=== PATIENT | female | born 1940 | race Caucasian/White ===

== ENCOUNTER → 2017-02-26 | Outpatient (CLI) | payer MEDICARE, OTHER | LOC: SLEEP-COR 11:01 | DX: G47.33 Obstructive sleep apnea (adult) (pediatric) (principal) | CPT/HCPCS: 95810 ==

== ENCOUNTER → 2021-08-24 | Outpatient (CLI) | payer MEDICARE, OTHER ==
[2021-08-24 14:10] LABS: BUN/CREATININE RATIO 23 (0-10)
== END ==
LOC: LAB 12:22
PROVIDERS: Family Medicine
DX: M25.572 Pain in left ankle and joints of left foot (principal); E03.9 Hypothyroidism, unspecified; E87.0 Hyperosmolality and hypernatremia
CPT/HCPCS: 36415; 73610; 80048; 84439; 84443

== ENCOUNTER → 2021-10-04 | Outpatient (CLI) | payer MEDICARE, OTHER | LOC: KOH-I 09:17 | DX: M25.572 Pain in left ankle and joints of left foot (principal); M19.072 Primary osteoarthritis, left ankle and foot; M19.071 Primary osteoarthritis, right ankle and foot | CPT/HCPCS: 73610; 73630 ==

== ENCOUNTER → 2021-12-17 | Outpatient (CLI) | payer MEDICARE, OTHER | LOC: EXRD 13:02 | DX: M25.561 Pain in right knee (principal); M17.11 Unilateral primary osteoarthritis, right knee | CPT/HCPCS: 73564 ==

== ENCOUNTER → 2022-04-17 | Outpatient (CLI) | payer MEDICARE, OTHER ==
[~2022-04-17] MED LIST: CRESTOR10 MG PO; LEVOTHYROXINE75 MCG PO; NORVASC5 MG PO; PLAVIX75 MG PO; TOPROL XL50 MG PO; VIT B12 PO; VITAMIN D325 MCG PO; ZOLOFT100 MG PO
[2022-04-17 10:52] LABS: HEMOGLOBIN 13.1 gm/dl (12.3-15.3); RED BLOOD COUNT 4.53 M/UL (4.00-5.10); WHITE BLOOD COUNT 7.6 K/UL (4.5-11.0)
[2022-04-17 11:22] LABS: BUN/CREATININE RATIO 26 (0-10)
== END ==
LOC: EDSTATUS 10:00 → OPSV2 10:00
PROVIDERS: Orthopaedic Surgery
DX: Z01.818 Encounter for other preprocedural examination (principal); M17.11 Unilateral primary osteoarthritis, right knee; R00.1 Bradycardia, unspecified; R94.31 Abnormal electrocardiogram [ECG] [EKG]; Z88.8 Allergy status to other drugs, medicaments and biological substances; Z88.2 Allergy status to sulfonamides
CPT/HCPCS: 36415; 80048; 85027; 93005

== ENCOUNTER 2022-04-30 06:29 | Day surgery (SDC) | payer MEDICARE, OTHER ==
[~2022-04-30] VITALS: Ht 157.5 cm; Wt 77.1 kg
[~2022-04-30 06:29] MED LIST changes: -VIT B12 PO; +VITAMIN B-12500 MCG PO
[2022-04-30 07:35] LABS: BUN/CREATININE RATIO 37 (0-10)
[2022-04-30] MEDS ORDERED: ENDOCET 7.5-321 EACH PO (12:11)
[2022-04-30] MEDS ORDERED: ELIQUIS2.5 MG PO (12:11)
[2022-04-30] MEDS ORDERED: ZOFRAN 4 MG TAB4 MG PO (12:11)
[2022-04-30] MEDS ORDERED: CYCLOBENZAPRINE10 MG PO (12:11)
[2022-05-01 05:20] LABS: HEMOGLOBIN 8.8 gm/dl (12.3-15.3); RED BLOOD COUNT 2.99 M/UL (4.00-5.10); WHITE BLOOD COUNT 15.4 K/UL (4.5-11.0)
[2022-05-01 06:03] LABS: BUN/CREATININE RATIO 36 (0-10)
== END 2022-05-01 13:38 | disposition home or self-care (01) ==
LOC: OR 06:29 → EDSTATUS 10:45 → CCU 15:20 → OR 05-01 13:38
PROVIDERS: Orthopaedic Surgery
DX: M17.11 Unilateral primary osteoarthritis, right knee (principal); M25.761 Osteophyte, right knee; I10 Essential (primary) hypertension; E78.5 Hyperlipidemia, unspecified; E03.9 Hypothyroidism, unspecified; I25.10 Atherosclerotic heart disease of native coronary artery without angina pectoris; I35.9 Nonrheumatic aortic valve disorder, unspecified; G47.33 Obstructive sleep apnea (adult) (pediatric); K21.9 Gastro-esophageal reflux disease without esophagitis; F32.A Depression, unspecified; Z88.2 Allergy status to sulfonamides; Z88.8 Allergy status to other drugs, medicaments and biological substances; Z91.048 Other nonmedicinal substance allergy status; Z79.01 Long term (current) use of anticoagulants; Z85.828 Personal history of other malignant neoplasm of skin
CPT/HCPCS: 36415; 73560; 80048; 85027; 86850; 86900; 86901; 97110; 97116-GP-CQ; 97162; 97165; 97530-GP-CQ; 97535; C1713; C1776; J0690; J1100; J1170; J2001; J2270; J2274; J2405; J2704; J2795; J3010; J3370

== ENCOUNTER 2022-05-04 11:24 | Emergency (ER) | payer MEDICARE, OTHER ==
[~2022-05-04 11:24] MED LIST changes: +CYCLOBENZAPRINE10 MG PO; +ELIQUIS2.5 MG PO; +ENDOCET 7.5-321 EACH PO; +ZOFRAN 4 MG TAB4 MG PO
[2022-05-04 12:26] LABS: HEMOGLOBIN 7.3 gm/dl (12.3-15.3); RED BLOOD COUNT 2.44 M/UL (4.00-5.10); WHITE BLOOD COUNT 10.4 K/UL (4.5-11.0)
[2022-05-04 12:57] LABS: BUN/CREATININE RATIO 27 (0-10)
== END 2022-05-04 15:30 | disposition home or self-care (01) ==
LOC: ER1 11:24
PROVIDERS: Physician Assistant
DX: M25.561 Pain in right knee (principal); D64.9 Anemia, unspecified; Z96.651 Presence of right artificial knee joint; I25.2 Old myocardial infarction; E78.5 Hyperlipidemia, unspecified; I10 Essential (primary) hypertension; Z88.2 Allergy status to sulfonamides; Z95.5 Presence of coronary angioplasty implant and graft
CPT/HCPCS: 73564; 80053; 85025; 99283

== ENCOUNTER → 2022-05-07 | Outpatient (CLI) | payer MEDICARE, OTHER ==
[2022-05-07 13:55] LABS: HEMOGLOBIN 8.7 gm/dl (12.3-15.3); RED BLOOD COUNT 2.95 M/UL (4.00-5.10); WHITE BLOOD COUNT 11.6 K/UL (4.5-11.0)
== END ==
LOC: LAB 13:08
PROVIDERS: Physician Assistant
DX: D64.89 Other specified anemias (principal)
CPT/HCPCS: 36415; 85025